=== PATIENT | female | born 1975 ===

== ENCOUNTER 2016-09-22 14:04 | Observation (INO) | payer OTHER ==
[2016-09-22 14:51] VITALS: O2SAT 98
[2016-09-22] MEDS ORDERED: Sodium Chloride 0.9% 1,000 ML IV STA (17:20)
--- NOTE | 2016-09-22 17:24 | C.PDOC ---
History Of Present Illness <Jw Martinez - Last Filed: 09/22/16 17:25> <Alfonso Edmondson - Last Filed: 09/22/16 21:17> Patient was brought into MAIN ER from waiting status at 1700. 41 y/o F c no PMHx p/w headache x 2 weeks and L sided abdominal pain x 3 days. Headache is occipital and L sided neck, almost at midline. Patient states severe , constant. Initially thought perhaps a muscular pain but now thinks it may be more serious. Denies numbness, weakness, vision change, nausea, vomiting, fever , stiff neck, recent travel. She notes that she has had a facial droop when she was 13, had 2 seizures in one day once when her mother was sick. She also complains of L sided abdominal pain, sharp, crampy x 3 days. Denies constipation , dysuria, vaginal bleeding. Patient has taken no medication for either pain. History obtained via [employer] translation service. (Jw Martinez) <Jw Martinez - Last Filed: 09/22/16 17:25> <Alfonso Edmondson - Last Filed: 09/22/16 21:17> Time Seen by Provider: 09/22/16 17:01 Chief Complaint (Nursing): Abdominal Pain Past Medical History - Social History Hx Alcohol Use: No Hx Substance Use: No <Jw Martinez - Last Filed: 09/22/16 17:25> Family History: States: No Known Family Hx <DelvisGaviolivia - Last Filed: 09/22/16 21:17> Vital Signs: Last Vital Signs Temp 98.9 F 09/22/16 20:49 Pulse 75 09/22/16 20:49 Resp 20 09/22/16 20:49 BP 107/66 09/22/16 20:49 Pulse Ox 98 09/22/16 20:49 Review Of Systems Except As Marked, All Systems Reviewed And Found Negative. Constitutional: Negative for: Fever Cardiovascular: Negative for: Chest Pain <Jw Martinez - Last Filed: 09/22/16 17:25> Physical Exam <Jw Martinez - Last Filed: 09/22/16 17:25> <Alfonso Edmondson - Last Filed: 09/22/16 21:17> - Physical Exam Additional Physical Exam Comments: Constitutional: No acute distress. Head: Normocephalic. Atraumatic. Eyes: PERRL. EOMI. ENT: Moist mucous membranes. No mastoid tenderness. Neck: Supple. Negative Kernig/Brudzinski signs. No midline tenderness. No bruits. Cardiovascular: Regular rate. Radial pulse 2+ bilaterally. Chest: No tenderness. Respiratory: Clear to auscultation bilaterally. GI: Soft. LUQ tenderness with guarding. Nondistended. Back: No CVA tenderness. Musculoskeletal: No tenderness or swelling of extremities. FROM x 4. Skin: No dermatomal or other rash. Neurologic: Alert, no focal deficit. (Jw Martinez) ED Course And Treatment O2 Sat by Pulse Oximetry: 98 <Jw Martinez - Last Filed: 09/22/16 17:25> - Laboratory Results Result Diagrams: 09/22/16 17:36 09/22/16 17:36 Pulse Ox Interpretation: Normal <Alfonso Edmondson - Last Filed: 09/22/16 21:17> ED OBSERVATION Date of observation admission: 09/22/16 Time of observation admission: 17:00 <Jw Martinez - Last Filed: 09/22/16 17:25> Discharge: Yes <Alfonso Edmondson - Last Filed: 09/22/16 21:17> - Observation admission statement Patient is being placed in observation because:: abdominal pain headache (Jw Martinez) - Goals of Observation Goals of observation are:: observation pending imaging (Jw Martinez) - Progress Note Progress Note: 09/22/16 17:35 Will treat with toradol, check imaging and labs, and reassess. 09/22/16 19:00 Pending imaging. Will sign out to ER night team at change of shift. (Jw Martinez ) Disposition <Jw Martinez - Last Filed: 09/22/16 17:25> Counseled Patient/Family Regarding: Studies Performed, Diagnosis, Need For Followup, Rx Given - Disposition Disposition Time: 19:00 <Alfonso Edmondson - Last Filed: 09/22/16 21:17> - Disposition Condition: FAIR - Clinical Impression Clinical Impression: Abdominal pain, Headache, Cervical strain
[2016-09-22] MEDS ORDERED: Sodium Chloride 0.9% 1,000 ML ONE (17:38)
[2016-09-22 17:53] LABS: BASO # 0.1 K/uL (0.0-0.2); BASO % 0.8 % (0.0-2.0); EOS # 0.3 K/uL (0.0-0.7); EOS % 3.5 % (0.0-4.0); HEMATOCRIT 37.1 % (34.0-47.0); LYMPH # 2.1 K/uL (1.0-4.3); LYMPH % 24.2 % (20.0-40.0); MEAN CELL VOLUME 89.4 fL (81.0-99.0); MEAN CORPUSCULAR HEMOGLOBIN 29.4 pg (27.0-31.0); MEAN CORPUSCULAR HGB CONC 32.9 g/dL (33.0-37.0); MEAN PLATELET VOLUME 8.4 fL (7.2-11.7); MONO # 0.6 K/uL (0.0-0.8); MONO % 7.3 % (0.0-10.0); WHITE BLOOD COUNT 8.7 K/uL (4.8-10.8)
[2016-09-22 18:27] LABS: RBC URINE < 1 /hpf (0-3); URINE BACTERIA RARE (<OCC); URINE BILIRUBIN NEGATIVE (NEGATIVE); URINE BLOOD NEGATIVE (NEGATIVE); URINE COLOR Yellow (YELLOW); URINE GLUCOSE (UA) NORMAL (Normal); URINE KETONE NEGATIVE (NEGATIVE); URINE LEUKOCYTE ESTERASE NEG Leu/uL (Negative); URINE PROTEIN NEGATIVE (NEGATIVE); URINE UROBILINOGEN NORMAL mg/dL (0.2-1.0); WBC URINE 1 /hpf (0-5)
[2016-09-22 18:31] LABS: CHLORIDE 105 mmol/L (98-107); SODIUM 140 mmol/L (132-148)
[2016-09-22 18:32] LABS: POTASSIUM 3.8 mmol/L (3.6-5.2)
[2016-09-22] MEDS ORDERED: Iodixanol 320 mg/ml 150 ml Bottle IV ONE (18:32)
[2016-09-22 18:34] LABS: ALB/GLOB RATIO 1.3 (1.0-2.1); ALKALINE PHOSPHATASE 73 U/L (38-126); ALT/SGPT 17 U/L (9-52); AST/SGOT 18 U/L (14-36); BILIRUBIN,TOTAL 0.8 mg/dL (0.2-1.3); BLOOD UREA NITROGEN 10 mg/dL (7-17); CARBON DIOXIDE 24 mmol/L (22-30); GFR AFRICAN-AMERICAN > 60; GLUCOSE,RANDOM 84 mg/dL (65-105); TOTAL PROTEIN 7.2 g/dL (6.3-8.3)
[2016-09-22 20:49] VITALS: BP 107/66; PULSE 75; RESP 20; TEMP 98.9
--- NOTE | 2016-09-23 09:35 | CT ---
PROCEDURE: CT HEAD WITHOUT CONTRAST. HISTORY: occipital headache COMPARISON: None available. TECHNIQUE: Axial computed tomography images were obtained through the head/brain without intravenous contrast. Radiation dose: Total exam DLP = 902 mGy-cm. This CT exam was performed using one or more of the following dose reduction techniques: Automated exposure control, adjustment of the mA and/or kV according to patient size, and/or use of iterative reconstruction technique. FINDINGS: HEMORRHAGE: No intracranial hemorrhage. BRAIN: No mass effect or edema. No atrophy or chronic microvascular ischemic changes. VENTRICLES: Unremarkable. No hydrocephalus. CALVARIUM: Unremarkable. PARANASAL SINUSES: Unremarkable as visualized. No significant inflammatory changes. MASTOID AIR CELLS: Unremarkable as visualized. No inflammatory changes. OTHER FINDINGS: None. IMPRESSION: No acute intracranial abnormality. If focal neurologic deficit persists, consider MRI. These findings were preliminarily reported at 8:18 p.m. on 09/22/[address] Marly Abarca from [facility].
--- NOTE | 2016-09-23 09:41 | CT ---
PROCEDURE: CT Cervical Spine without contrast HISTORY: Midline neck tenderness COMPARISON: None available. TECHNIQUE: Axial computed tomography images were obtained of the cervical spine without the use of intravenous contrast. Coronal and sagittal reformatted images were created and reviewed. Radiation dose: Total exam DLP = 346 mGy-cm. This CT exam was performed using one or more of the following dose reduction techniques: Automated exposure control, adjustment of the mA and/or kV according to patient size, and/or use of iterative reconstruction technique. FINDINGS: VERTEBRAE: No fracture. Straightening of the normal cervical lordosis. No destructive bony lesion. DISCS/SPINAL CANAL/NEURAL FORAMINA: No significant central canal or neural foraminal stenosis. Discs heights are grossly preserved. PARASPINAL SOFT TISSUES: Unremarkable. OTHER FINDINGS: Productive heterotopic calcifications/ossification adjacent to the dens both at its right and left lateral aspects, likely chronic. IMPRESSION: Straightening of the normal cervical lordosis. Productive heterotopic calcifications/ossifications adjacent to the dens both at its right and left lateral aspects, likely chronic. If pain persists, consider MRI. These findings were preliminarily reported at 8:20 p.m. on 09/22/[address] Marly Abarca from [facility].
--- NOTE | 2016-09-23 09:49 | CT ---
PROCEDURE: CT Abdomen and Pelvis without intravenous contrast HISTORY: Left upper quadrant abdominal pain COMPARISON: None. TECHNIQUE: Multiple contiguous axial images were performed through the abdomen and pelvis with intravenous contrast. Subsequently, sagittal and coronal reformatted images were obtained. Radiation dose: Total exam DLP = 371 mGy-cm. This CT exam was performed using one or more of the following dose reduction techniques: Automated exposure control, adjustment of the mA and/or kV according to patient size, and/or use of iterative reconstruction technique. FINDINGS: LOWER THORAX: Unremarkable. LIVER: 5 millimeter low-attenuation lesion the posterior superior segment of the right hepatic lobe, indeterminate. GALLBLADDER AND BILE DUCTS: Unremarkable. PANCREAS: Unremarkable. No gross lesion or ductal dilatation. SPLEEN: Unremarkable. ADRENALS: Unremarkable. No mass. KIDNEYS AND URETERS: Unremarkable. No hydronephrosis. No solid mass. VASCULATURE: Unremarkable. No aortic aneurysm. BOWEL: Moderate to large amount of fecal retention in the colon. APPENDIX: No findings to suggest acute appendicitis. PERITONEUM: Unremarkable. No free fluid. No free air. LYMPH NODES: Unremarkable. No enlarged lymph nodes. BLADDER: Unremarkable. REPRODUCTIVE: Heterogeneous uterus and bilateral adnexa. BONES: No acute fracture. OTHER FINDINGS: Trace amount of fluid is noted in the posterior pelvic cul-de-sac. IMPRESSION: Heterogeneous uterus and bilateral adnexa. Trace amount of fluid is noted in the posterior pelvic cul-de-sac. Moderate to severe fecal retention throughout the colon. 5 millimeter low-attenuation lesion in the posterior superior segment of the right hepatic lobe, too small to adequately characterize. Clinical correlation. These findings were preliminarily reported at 8:36 p.m. on 09/22/[address] Marly Abarca from [facility].
== END 2016-09-22 21:17 | disposition home or self-care (01) ==
LOC: C.ER 14:04 → C.9OBSV 17:00
PROVIDERS: ADMIT Student in an Organized Health Care Education/Training Program; ATTEND Student in an Organized Health Care Education/Training Program
DX: R51 Headache (principal); R10.9 Unspecified abdominal pain; S16.1XXA Strain of muscle, fascia and tendon at neck level, initial encounter; X58.XXXA Exposure to other specified factors, initial encounter
CPT/HCPCS: 70450; 72125; 74177; 80053; 81001; 83690; 84703; 85025; 87086; 96360; 96374; G0378; J1885; J7040; Q9965